=== PATIENT | female | born 1975 | race African-American/Black ===

== ENCOUNTER 2020-05-21 19:01 | Observation (INO) | payer OTHER, SELFPAY ==
--- NOTE | ~2020-05-21 | CT_ITS ---
EXAMINATION: CT abdomen pelvis w con INDICATION: Right upper quadrant pain TECHNIQUE: Computed tomographic images of the abdomen and pelvis were obtained after the administrati on of 100 cc of Omnipaque 350 intravenous contrast. The dose-length product (DLP) was 541.11 mGy-cm. Automated exposure control and iterative reconstruction technique were employed. COMPARISON: None available FINDINGS: Minimal dependent atelectasis is present in the lung bases. The heart size is normal. There is a 2.1 cm hemangioma of the left hepatic lobe. The spleen, pancreas, and adrenal glands are normal . There appears to be mild wall thickening of the gallbladder. The kidneys are unremarkable. No patho logically enlarged abdominal or pelvic lymph nodes are identified. There is no free intraperitoneal g as or evidence of bowel obstruction. An IUD is present in the uterus in expected position. Calcified atherosclerosis is noted. The appendix is normal. IMPRESSION: 1. CT findings suggestive of acute cholecystitis. Consider further evaluation with ultrasound or nucl ear hepatobiliary scan. Reviewed, dictated and finalized at location A. LE PERSON IMPRESSION: 1. CT findings suggestive of acute cholecystitis. Consider further evaluation w ith ultrasound or nuclear hepatobiliary scan.
--- NOTE | ~2020-05-21 | CT_ITS ---
EXAMINATION: CT cervical spine wo con DATE: 05/21/2020 21:04 INDICATION: Neck pain TECHNIQUE: Computed tomography (CT) of the cervical spine was performed without intravenous contrast. The dose-length product (DLP) was 336.87 mGy-cm. Automated exposure control and iterative reconstruc tion technique were employed. COMPARISON: None FINDINGS: There is reversal of normal cervical lordosis. No fracture is identified. The vertebral bod y heights and alignment are normal. The intervertebral disc space heights are maintained. The odontoi d is intact. The prevertebral soft tissues are normal. IMPRESSION: 1. No acute osseous abnormality. Reviewed, dictated and finalized at location A. COATER
--- NOTE | ~2020-05-21 | US_ITS ---
EXAMINATION: US right upper quadrant EXAM DATE: 05/22/2020 07:24 INDICATION: Cholecystitis. TECHNIQUE: Multiple grayscale and Doppler images of the abdomen right upper quadrant were obtained (ngozi y a technologist who performed the scan) and subsequently reviewed. Correlation is made to CT abdomen from 05/21/2020. FINDINGS: The pancreatic head and body are normal in appearance. The pancreatic tail is not visualized. The l iver has normal echogenicity and contour. There are no focal liver lesions identified. There is no evidence of intrahepatic biliary duct dilation. Portal venous flow was seen in the hepatopedal, nor mal direction and has normal Doppler waveform. No right-sided hydronephrosis. Common bile duct measures 4 mm, which is normal. Gallbladder is mildly distended. There is borderline gallbladder wall thickening at 3 mm. Technologist did note tenderness over the gallbladder, sonograp hic Ayoub sign. No cholelithiasis or pericholecystic fluid. IMPRESSION: Borderline gallbladder wall thickening and sonographic Ayoub's sign demonstrated. No cho lelithiasis or pericholecystic fluid. Possible acute acalculous cholecystitis. Reviewed, dictated and finalized at location A. NDER JOB RETENTION SPECIALIST IMPRESSION: Borderline gallbladder wall thickening and sonographic Ayoub's sig n demonstrated. No cholelithiasis or pericholecystic fluid. Possible acute acal culous cholecystitis.
[2020-05-21 19:11] VITALS: BP 162/97; PULSE 101; RESP 18; TEMP 36.2; O2SAT 100
[2020-05-21 19:26] LABS: Basophils Percent Auto 0.6 % (0.2-1.2); Eosinophils Absolute Auto 0.2 K/mm3 (0-0.3); Eosinophils Percent Auto 2.8 % (0-4.4); Immature Granulocyte Absolute 0.01 K/mm3 (0.00-0.031); Immature Granulocyte Percent A 0.1 % (0-0.5); Lymphocytes Absolute Auto 3.23 K/mm3 (0.9-3.2); Lymphocytes Percent Auto 45.4 % (18.3-44.2); Mean Corpuscular HGB Conc 33.3 g/dl (32-36); Mean Corpuscular Hemoglobin 32.2 pg (26-34); Mean Corpuscular Volume 96.6 fl (80-100); Mean Platelet Volume 9.1 fl (7.4-10.4); Monocytes Absolute Auto 0.5 K/mm3 (0.1-0.6); Monocytes Percent Auto 6.3 % (2.6-8.5); Neutrophils Absolute Auto 3.2 K/mm3 (1.3-6.7); Neutrophils Percent Auto 44.8 % (45.5-73.1); Platelet Count Result 284 k/mm3 (150-375); Red Blood Count 4.35 M/mm3 (4.2-5.4); White Blood Count 7.1 K/mm3 (4.5-10.0)
[2020-05-21] MEDS: SODIUM CHLORIDE 0.9% IV 1,000 ML 999 ML IV CONT (19:45)
--- NOTE | 2020-05-21 20:14 | ED.GENADULT ---
HPI - General Adult General Chief complaint: Abdominal Pain Stated complaint: upper quadrant abdominal pain Time Seen by Provider: 05/21/20 19:37 Source: patient Mode of arrival: ambulatory Limitations: no limitations History of Present Illness HPI narrative: 44 years old -Thai female presents with right neck with intermittent right upper extremity pain for the last few weeks. Patient also complaining of right upper abdominal pain today. Patient denies any fever, chills, nausea, vomiting, headache, chest pain, shortness of breath, trauma. Patient works as a nurse Related Data Home Medications Medication Instructions Recorded Confirmed No Home Medications 05/21/20 05/21/20 Allergies Allergy/AdvReac Type Severity Reaction Status Date / Time No Known Allergies Allergy Verified 05/21/20 19:15 Review of Systems Review of Systems: Narrative: CONSTITUTIONAL: Denies fever, chills, or sweats. EYES: Denies visual changes, redness, or discharge. ENT: Denies rhinorrhea, congestion, sore throat, or otalgia. CARDIOVASCULAR: Denies chest pain, palpitations, or edema. RESPIRATORY: Denies cough or dyspnea. GASTROINTESTINAL: Denies abdominal pain, nausea, vomiting, or diarrhea. GENITOURINARY: Denies dysuria or hematuria. SKIN: Denies rash or itching. MUSCULOSKELETAL: Denies back pain, joint pain, or myalgia. NEUROLOGIC: Denies headache, numbness, or weakness. PSYCHIATRIC: Denies anxiety or depression. Exam Narrative: Exam Narrative: General appearance: Well-developed, well-nourished Skin: Normal color Head: Normocephalic, nontraumatic Eyes: Clear conjunctiva ENT: Oropharynx normal, ears normal, nose normal Neck: Supple, mild tenderness right side, no bruises, no swelling, no mass or rash Chest and respiratory: Airway patent, no respiratory distress, no accessory muscle use Heart: Regular rate/rhythm Abdomen: Soft, mild tenderness right upper quadrant, no organomegaly, quiet bowel sounds Vascular: Normal peripheral pulses, normal capillary refill. Musculoskeletal: Normal range of motion, nontender back Neurologic: Alert and oriented ?3, ASSISTANT CORPORATE SECRETARY is normal as tested, no gross motor deficit Course Course Emergency Course: Stable Vital Signs Vital signs: Vital Signs Temperature 36.2 C L 05/21/20 19:11 Pulse Rate 101 H 05/21/20 19:11 Respiratory Rate 18 05/21/20 19:11 Blood Pressure 162/97 H 05/21/20 19:11 Pulse Oximetry 100 05/21/20 19:11 Temperature 36.2 C L 05/21/20 19:11 Pulse Rate 101 H 05/21/20 19:11 Respiratory Rate 18 05/21/20 19:11 Blood Pressure 162/97 H 05/21/20 19:11 Pulse Oximetry 100 05/21/20 19:11 Medical Decision Making MDM Narrative Medical decision making narrative: Patient presents with symptoms of right cervical radiculopathy and right upper quadrant pain. Labs, UA, CT abdomen pelvis with IV contrast, CT cervical spine, IV fluids, IV morphine and Zofran ordered. Further plan to follow Differential Diagnosis Differential Diagnosis: Gallbladder pathology, diverticulitis, constipation, urinary tract infection, cervical radiculopathy Vital Signs Vital Signs: Vital Signs Temperature 36.2 C L 05/21/20 19:11 Pulse Rate 101 H 05/21/20 19:11 Respiratory Rate 18 05/21/20 19:11 Blood Pressure 162/97 H 05/21/20 19:11 Pulse Oximetry 100 05/21/20 19:11 Temperature 36.2 C L 05/21/20 19:11 Pulse Rate 101 H 05/21/20 19:11 Respiratory Rate 18 05/21/20 19:11 Blood Pressure 162/97 H 05/21/20 19:11 Pulse Oximetry 100 05/21/20 19:11 Lab Data Result diagrams: 05/21/20 19:20 Labs: Lab Results 05/21/20 Range/Units 19:20 WBC 7.1 (4.5-10.0) K/mm3 R
[2020-05-21] MEDS: MORPHINE SULFATE (*CRX) 2 MG/ML INJ IV PUSH (20:31)
[2020-05-21] MEDS: ONDANSETRON INJ 4 MG/2 ML VIAL IV PUSH (20:31)
[2020-05-21 20:45] LABS: Alanine Aminotransferase 20 U/L (4-35); Albumin Level 4.6 g/dL (3.5-5.1); Alkaline Phosphatase 55 U/L (38-126); Anion Gap 8 mmol/L (8-16); Aspartate Amino Transferase 27 U/L (14-36); Bilirubin,Total 0.4 mg/dL (0.2-1.3); Blood Urea Nitrogen 17 mg/dL (7-17); Calcium 9.9 mg/dL (8.4-10.2); Carbon Dioxide 32 mmol/L (22-30); Chloride 101 mmol/L (98-107); Estimated CRCL calculation 71 ml/min; Estimated Glomerular Filt Rate > 60; Glucose 101 mg/dL (65-105); Lipase 67 U/L (23-300); Potassium 3.8 mmol/L (3.4-5.0); Sodium 141 mmol/L (137-145)
[2020-05-21 21:00] LABS: Add Urine Microscopic? NO; Appearance Urine Clear (Clear); Bilirubin Urine Negative (Negative); Blood Urine Negative (Negative); Color Urine Yellow (Yellow); Glucose Urine UA Negative (Negative); Ketones Urine Negative (Negative); Leukocyte Esterase Ur Negative LEU/UL (Negative); Nitrate Urine Negative (Negative); Protein Urine Negative (Negative); Specific Grav Ur 1.023 (1.001-1.035); Urobilinogen Urine Negative mg/dL (<2.0)
[2020-05-21 21:50] VITALS: BP 133/81; PULSE 70; O2SAT 100
[2020-05-21 21:51] VITALS: BP 133/81
[2020-05-21] MEDS: LACTATED RINGERS 1,000 ML 125 ML IV CONT (22:46)
[2020-05-21 23:11] VITALS: BP 151/85; PULSE 69; PULSE 92; RESP 18; O2SAT 100
[2020-05-22] VITALS: BP 161/81; PULSE 77; RESP 21; TEMP 36.3; O2SAT 100; BMI 29.2
--- NOTE | 2020-05-22 00:03 | ADMGEN ---
This patient, Tasha Mckeon, was admitted to Medical Room 251-01. Patient/family oriented to hospital policies and general routines including ID bracelet, bed and alarms, visiting hours, pain management, procedures, bathroom and other care routines, personal items, smoking policy, room service/diet, and visiting hours. Information on how to activate the Rapid Response Team has been discussed. Patient/Family are encouraged to report perceived risks to care and to ask questions if they do not understand what they are told or what they should do.
[2020-05-22] MEDS: LACTATED RINGERS 1,000 ML 125 ML IV CONT ×2 (00:13→08:27)
[2020-05-22] MEDS: ONDANSETRON INJ 4 MG/2 ML VIAL IV PUSH ×3 (00:14→08:26)
[2020-05-22] MEDS: MORPHINE SULFATE (*CRX) 4 MG/ML INJ IV PUSH ×2 (00:14→04:04)
[2020-05-22 02:30] VITALS: BP 161/81; PULSE 77; RESP 21; TEMP 36.3; O2SAT 100
[2020-05-22 06:25] VITALS: BP 145/84; PULSE 85; RESP 21; TEMP 36.2; O2SAT 100
[2020-05-22 06:49] LABS: Alanine Aminotransferase 16 U/L (4-35); Albumin Level 3.7 g/dL (3.5-5.1); Alkaline Phosphatase 42 U/L (38-126); Anion Gap 2 mmol/L (8-16); Aspartate Amino Transferase 23 U/L (14-36); Bilirubin,Total 0.2 mg/dL (0.2-1.3); Blood Urea Nitrogen 16 mg/dL (7-17); Calcium 9.1 mg/dL (8.4-10.2); Carbon Dioxide 29 mmol/L (22-30); Chloride 108 mmol/L (98-107); Estimated CRCL calculation 66 ml/min; Estimated Glomerular Filt Rate > 60; Glucose 89 mg/dL (65-105); Sodium 139 mmol/L (137-145)
--- NOTE | 2020-05-22 09:26 | PM.IMHP ---
H&P: HPI History of Present Illness Date/Time: 05/22/20 09:26 Chief Complaint: Right upper quadrant pain Narrative: Tasha Mckeon is a 44 year old female who presented to the emergency department last night with right upper quadrant pain that started yesterday. She states that the pain started a few hours after eating a light lunch. She does not recall anything in particular that she ate that could have caused this. She did have a similar episode like this 2 weeks ago that resolved with time. This episode was a little more severe, therefore she decided to come in. She did have some nausea but no vomiting. She denies any fevers or chills or any change in bowel habits. She did state that she has been eating a Keto diet for several months, but she just recently moved up here from [place] and states that her diet has not been very good lately. She denies any family history of gallbladder problems and denies any prior history of intolerance to any particular foods. Review of Systems Review of Systems: All systems reviewed & are unremarkable except as noted in HPI and below Eyes: Eyes: Denies change in vision ENT: Denies hearing loss, Denies neck pain and Denies sore throat Cardiovascular: Cardiovascular: Denies chest pain and Denies dyspnea Respiratory: Respiratory: Denies cough, Denies dyspnea and Denies wheezing Gastrointestinal: Gastrointestinal: Reports as per HPI Genitourinary: Genitourinary: Denies hematuria and Denies dysuria Musculoskeletal: Musculoskeletal: Denies arthralgias, Denies joint swelling and Denies neck pain Allergic/Immunologic: Allergic/Immunologic: Denies wheezing [facility] Family History Family History (Updated 05/22/20 @ 09:29 by Carlos Hannah DO) Other Patient denies significant medical history Social History Social History Smoking status: Former smoker Tobacco type: cigarettes Alcohol intake: never Substance use: never Gender identity (if verbalized by the patient): Female Spiritual care concerns: No Meds Home Medications and Allergies Home Medications Medication Instructions Recorded Confirmed Type No Home Medications 05/21/20 05/21/20 History Allergies Allergy/AdvReac Type Severity Reaction Status Date / Time No Known Allergies Allergy Verified 05/21/20 19:15 Vital Signs Vital Signs - 24 hr 05/21/20 19:11 05/21/20 21:50 05/21/20 21:51 Temperature 36.2 C L Pulse Rate 101 H 70 Respiratory Rate 18 Blood Pressure 162/97 H 133/81 133/81 Pulse Oximetry 100 100 05/21/20 23:11 05/22/20 00:00 05/22/20 02:30 Temperature 36.3 C L 36.3 C L Pulse Rate 92 77 77 Respiratory Rate 18 21 H 21 H Blood Pressure 151/85 H 161/81 H 161/81 H Pulse Oximetry 100 100 100 05/22/20 06:25 Temperature 36.2 C L Pulse Rate 85 Respiratory Rate 21 H Blood Pressure 145/84 H Pulse Oximetry 100 Exam Const: General: alert; No acute distress Orientation/consciousness: patient oriented x3 Limitations: no limitations HENMT: Head: normocephalic and atraumatic Ears: hearing grossly normal bilaterally General nose exam: Normal external nose present and Normal nares present Mouth: Yes Normal oral and palatal mucosa present and Yes moist mucous membranes Eyes: General: appearance normal, both eyes and all related structures Conjunctivae: conjunctivae normal Sclera: sclerae normal Pupils: Equal, round and reactive pupils present EOM: EOMs intact bilaterally Neck: Neck: normal visual inspection, full ROM, no lymphadenopathy, supple and no JVD Lymphatic: no lymphadenopathy noted Chest: Chest palpation & inspection: normal inspection of the chest Resp: Effort & Inspection: normal respiratory effort and able to speak in complete sentences Auscultation: clear to auscultation bilaterally Percussion: percussion normal Cardio: Jugular venous distension: no JVD Rate: regular rate Rhythm: regul
[2020-05-22 14:00] VITALS: BP 142/74; PULSE 100; RESP 16; TEMP 36.4; O2SAT 97
--- NOTE | 2020-05-22 14:15 | PM.DS ---
DS: Admitting Diagnosis Admitting Diagnosis Admitting Diagnosis: Acute cholecystitis DS: Discharge Diagnosis Discharge Diagnosis (1) Cholecystitis without cholelithiasis: Code(s): K81.9 - Cholecystitis, unspecified Status: Acute DS: Summary Hospital Course Reason for hospitalization: Tasha Mckeon is a 44 year old female who presented to the emergency department last night with right upper quadrant pain. Workup in the ED showed normal white blood cell count and normal LFTs. CT abd/pelvis showed mild gallbladder wall thickening, no gallstones. Abdominal ultrasound showed borderline gallbladder wall thickening and positive Ayoub's sign, but no cholelithiasis or pericholecystic fluid. The patient was admitted for observation and surgical evaluation. Hospital Course: The patient was started on IV fluids and broad-spectrum IV antibiotics initially. She was NPO until evaluated by our service. Her abdominal pain improved significantly after being admitted from the ED and had nearly resolved by the time she was evaluated on the medical floor this morning. She had no evidence of cholelithiasis on imaging and her labs were normal. Differential dx were discussed with the patient and treatment options. She opted to try eating a low fat diet and see if she tolerates a diet. The patient was re-evaluated this afternoon and has been tolerating the low fat diet through the day. She had some mild nausea when eating lunch that quickly resolved. No more episodes of abdominal pain. No other complaints at this time. The patient would still like to be discharged home since she is tolerating a diet. I discussed with the patient to call our office or return to the ER if symptoms return. Status at Discharge Functional status at discharge: independent ambulation Overall status at discharge: patient is back to baseline Time Spent with Patient Time attestation: Total time spent providing and/or coordinating discharge services: 20 minutes Time spent: Less than 30 minutes Exam GI: Inspection: normal to inspection and non-distended GI Palp: Yes Soft to palpation, Yes Tenderness to palpation present (GI) (very mild RUQ, improved) and No Guarding due to palpation present (GI) Percussion: Yes normal to percussion Auscultation: normal bowel sounds Skin: General skin exam: normal color Neuro: General: moves all extremities and no focal motor deficits DS: Data Data Completed and Pending Completed studies during hospitalization: ITS Impressions Cervical Spine CT 05/21/20 21:13 IMPRESSION: 1. No acute osseous abnormality. Abdomen/Pelvis CT 05/21/20 21:24 IMPRESSION: 1. CT findings suggestive of acute cholecystitis. Consider further evaluation with ultrasound or nuclear hepatobiliary scan. Upper Quadrant Ultrasound 05/22/20 07:26 IMPRESSION: Borderline gallbladder wall thickening and sonographic Ayoub's sign demonstrated. No cholelithiasis or pericholecystic fluid. Possible acute acalculous cholecystitis. Labs on day of discharge: Labs from last 24 hours 05/22/20 05/21/20 05/21/20 05:08 20:53 19:20 WBC RBC Hgb Hct MCV MCH MCHC RDW Plt Count MPV Immature Gran % (Auto) Neut % (Auto) Lymph % (Auto) Carson % (Auto) Eos % (Auto) Baso % (Auto) Lymph # (Auto) Carson # (Auto) Eos # (Auto) Baso # (Auto) Abs Immat Gran (auto) Absolute Neuts (auto) Absolute Nucleated RBC Nucleated RBC % Sodium 139 141 Potassium 4.0 3.8 Chloride 108 H 101 Carbon Dioxide 29 32 H Anion Gap 2 L 8 BUN 16 17 Creatinine 1.00 0.90 Estim Creat Clear Calc 66 71 Estimated GFR > 60 > 60 Glucose 89 101 Calcium 9.1 9.9 Total Bilirubin 0.2 0.4 AST 23 27 ALT 16 20 Alkaline Phosphatase 42 55 Total Protein 6.0 L 8.0 Albumin 3.7 4.6 Lipase 67 Urine Color Yellow Urine Appearance Clear Urine pH 7.0 Ur Specific
== END 2020-05-22 16:35 | disposition home or self-care (01) ==
LOC: ANHED 19:37 → ANH2MED 23:21
PROVIDERS: Admitting Provider Surgery; Emergency Provider Emergency Medicine; Referring Provider Emergency Medicine; Visit Provider Surgery
DX: K81.9 Cholecystitis, unspecified (principal); Z87.891 Personal history of nicotine dependence
CPT/HCPCS: 36415; 72125; 74177; 76705; 80053; 81003; 81025; 83690; 85025; 96361; 96365; 96375; 96376; 99285; G0378; J0131; J2270; J2405; J2543; J7030; J7120; Q9967

== ENCOUNTER 2020-05-23 14:09 | Emergency (ER) | payer OTHER, SELFPAY ==
--- NOTE | ~2020-05-23 | US_ITS ---
EXAMINATION: US venous doppler UE RT DATE: 05/23/2020 15:13 INDICATION: Right arm swelling TECHNIQUE: Grayscale ultrasound images without and with compression and Doppler ultrasound images of the right upper extremity veins were obtained. COMPARISON: None. FINDINGS: The right internal jugular vein, subclavian vein, axillary vein, brachial veins, basilic vein, cephal ic vein, radial vein, and ulnar vein are patent. IMPRESSION: 1. No evidence of deep venous thrombosis. Reviewed, dictated and finalized at location A. OR WINDOWS SYSTEMS ADMINISTRATOR
[2020-05-23 14:21] VITALS: BP 166/92; PULSE 80; RESP 16; TEMP 36.6; O2SAT 100
[2020-05-23] MEDS: methylPREDNISolone SOD SUCC 125 MG VIAL IM (15:20)
[2020-05-23] MEDS: KETOROLAC 30 MG/ML VIAL (*BKC) IM (15:20)
--- NOTE | 2020-05-23 20:33 | ED.GENADULT ---
HPI - General Adult General Chief complaint: Extremity Problem,Nontraumatic Stated complaint: right arm pain Time Seen by Provider: 05/23/20 14:15 Source: patient Mode of arrival: ambulatory Limitations: no limitations History of Present Illness HPI narrative: Patient presents with chief complaint of persistently worsening right arm pain that at times feels sharp and at times feels intense and throbby. Patient states that she had a CT of her neck and spoke with her primary care on today we will refer her to neurology. Patient states she follow-up with neurologist office and was told that they do not perform test in the office. She states that her primary care the refer her to the emergency department for further investigation. Patient states she has had had multiple blood draws, IVs, but has not had any falls or direct trauma to her neck or arms. Patient states that she is very concerned for a blood clot in her arm. She feels swollen and slightly warm. Area is not erythematous. Patient has not had any fever, chills, nausea, vomiting, diarrhea. Patient states that her primary care has called her steroids and muscle relaxants to the pharmacy. Related Data Home Medications Medication Instructions Recorded Confirmed No Home Medications 05/21/20 05/21/20 Allergies Allergy/AdvReac Type Severity Reaction Status Date / Time No Known Allergies Allergy Verified 05/23/20 16:11 Review of Systems Review of Systems: Narrative: CONSTITUTIONAL: Denies fever, chills, or sweats. EYES: Denies visual changes, redness, or discharge. ENT: Denies rhinorrhea, congestion, sore throat, or otalgia. CARDIOVASCULAR: Denies chest pain, palpitations, or edema. RESPIRATORY: Denies cough or dyspnea. GASTROINTESTINAL: Denies abdominal pain, nausea, vomiting, or diarrhea. GENITOURINARY: Denies dysuria or hematuria. SKIN: Denies rash or itching. MUSCULOSKELETAL: Reports right arm pain denies back pain, joint pain, or myalgia. NEUROLOGIC: Denies headache, numbness, dizziness, or weakness. PSYCHIATRIC: Denies anxiety or depression. [facility] Family History Family History (Updated 05/22/20 @ 09:29 by Carlos Hannah DO) Other Patient denies significant medical history Social History Social History Smoking status: Former smoker Tobacco type: cigarettes Alcohol intake: never Substance use: never Gender identity (if verbalized by the patient): Female Spiritual care concerns: No Exam Narrative: Exam Narrative: GENERAL: Well-appearing, well-nourished, and in no acute distress. HEAD: Normocephalic, atraumatic. EYES: PERRLA and EOMI. NECK: Supple. No adenopathy or masses. No vertebral point tenderness to palpation or loss of range of motion to the neck. CHEST: Clear to auscultation. No respiratory distress. No wheezes rales or rhonchi HEART: Regular rate and rhythm. No murmur heard. Normal peripheral pulses. ABDOMEN: Soft, nontender, nondistended, normal active bowel sounds. EXTREMITIES: There is tenderness with palpation to the proximal aspect to the anxiety of the right arm. normal range of motion. No appreciated erythema or ecchymosis or edema. Pulses intact. SKIN: Warm, dry, no rash. NEURO: No focal deficits. Alert and oriented x3. PSYCH: Normal mood and affect. Course Vital Signs Vital signs: Vital Signs Temperature 98 F 05/23/20 14:21 Pulse Rate 80 05/23/20 14:21 Respiratory Rate 16 05/23/20 14:21 Blood Pressure 166/92 H 05/23/20 14:21 Pulse Oximetry 100 05/23/20 14:21 Temperature 98 F 05/23/20 14:21 Pulse Rate 80 05/23/20 14:21 Respiratory Rate 16 05/23/20 14:21 Blood Pressure 166/92 H 05/23/20 14:21 Pulse Oximetry 100 05/23/20 14:21 Medical Decision Making MDM Narrative Medical decision making narrative: Discussed with the patient that her Doppler was negative for DVT. Discussed that I suspect the patient is having cervical
== END 2020-05-23 16:04 | disposition home or self-care (01) ==
PROVIDERS: Emergency Provider Emergency Medicine
DX: M54.12 Radiculopathy, cervical region (principal); Z87.891 Personal history of nicotine dependence
CPT/HCPCS: 93971; 96372; 99284; J1885; J2930

== ENCOUNTER 2020-11-28 14:55 | Outpatient (CLI) | payer OTHER, SELFPAY ==
--- NOTE | ~2020-11-28 | MM_ITS ---
EXAMINATION: MM screening baudilio BI w dixon HISTORY: Screening mammogram TECHNIQUE: Craniocaudal and mediolateral oblique 3-D tomosynthesis images were obtained and synthetic 2-D images were generated. CAD analysis was submitted and interpreted. COMPARISON: No prior mammogram is available for comparison at this institution. BREAST PARENCHYMAL COMPOSITION: There are scattered areas of fibroglandular density. FINDINGS: There is no evidence of suspicious mass, calcification, or architectural distortion to sugg est malignancy in either breast. There has been no suspicious interval change. IMPRESSION: 1. No mammographic evidence of malignancy. 2. Recommend routine screening mammography in one year. BI-RADS Category 1: Negative Reviewed, dictated and finalized at location A.
== END 2020-11-28 14:56 ==
PROVIDERS: Visit Provider Obstetrics & Gynecology
DX: Z12.31 Encounter for screening mammogram for malignant neoplasm of breast (principal)
CPT/HCPCS: 77063; 77067

== ENCOUNTER 2022-06-17 08:00 | Outpatient (NON) | payer OTHER, SELFPAY | END 2022-06-17 08:01 | disposition home or self-care (01) | LOC: ANHLAB 06-18 07:35 | PROVIDERS: PCP Physician Assistant; Visit Provider Internal Medicine Gastroenterology | DX: Z12.11 Encounter for screening for malignant neoplasm of colon (principal) | CPT/HCPCS: 88305 ==

== ENCOUNTER 2022-06-17 11:18 | Day surgery (SDC) | payer OTHER, SELFPAY ==
[2022-05-19 13:45] VITALS: BMI 27.3
[2022-06-03 10:29] VITALS: BMI 27.1
[2022-06-17 12:17] VITALS: BP 170/89; PULSE 89; RESP 18; TEMP 36.8; O2SAT 100
--- NOTE | 2022-06-17 12:33 | WPDANESEPPF ---
Anes - Initial Pre Proc Eval Procedure: Operation Date: 06/17/22 13:30 Proposed Procedures p Esophagogastroduodenoscopy - Kendall Ernst MD s Diagnostic Colonoscopy - Kendall Ernst MD Date/Time: 06/17/22 12:33 Surgeon: Kendall Ernst MD Pre Op Diagnosis: Gerd and Blood in Stool Patient Data Age: 46 Gender: F Height: 1.65 m Weight: 77.3 kg Last Vital Signs Temp 36.8 C 06/17/22 12:17 Pulse 89 06/17/22 12:17 Resp 18 06/17/22 12:17 BP 170/89 H 06/17/22 12:17 Pulse Ox 100 06/17/22 12:17 O2 Del Method Room Air 06/17/22 12:17 Allergies Allergy/AdvReac Type Severity Reaction Status Date / Time No Known Allergies Allergy Verified 06/17/22 12:16 Home Medications Medication Instructions Recorded Confirmed Type No Home Medications 05/21/20 06/17/22 History Patient hx anesthesia problems: none Family hx anesthesia problems: none Results Review: All pre-operative results and documents have been reviewed as part of the pre-operative evaluation. [facility], [facility] Past Medical History Medical History (Updated 06/17/22 @ 12:33 by Juan Pablo Elliott MD) Overweight Family History Family History Other Patient denies significant medical history Social History Social History Smoking status: Current every day smoker Tobacco type: cigarettes Alcohol intake: never Substance use: never Substance use type: does not use Living arrangements: with family Gender identity (if verbalized by the patient): Female Spiritual care concerns: No Anes - Eval Final PreProcedure Day of Procedure 06/17/22 12:33 Patient weight: overweight Heart: regular rate and rhythm Lungs: clear to auscultation Airway: Mallampati scale class II Neurological: alert and oriented Last oral intake: >/= 8 hours ASA classification: II Emergent: no Anesthetic plan: proceed Anesthesia type and monitoring: general GIVS and standard monitoring Results Review: All pre-operative results and documents have been reviewed as part of the pre-operative evaluation. Informed Consent: The patient's anesthetic plan and its attendant risks and benefits were discussed with the patient/family/POA. Questions were solicited and answers provided to the satisfaction of the patient/family/POA.
[2022-06-17] MEDS: LACTATED RINGERS 1,000 ML 150 ML IV CONT (12:39)
--- NOTE | 2022-06-17 13:04 | PM.HPGS ---
History of Present Illness History of Present Illness Consent: Risks, benefits, and alternatives have been discussed and questions answered. Patient agrees to proceed with procedure. Chief complaint: Gerd and Blood in Stool Narrative: Tasha Smith is a 46 year old female with gerd, tried omeprazole otc and last egd years ago, also intermittent blood in stools and never had colonoscopy Review of Systems Constitutional: Constitutional: Denies headache(s) and Denies weakness Eyes: Eyes: Denies blurry vision ENT: Reports Normal hearing present, Denies headache(s) and Denies neck pain Cardiovascular: Cardiovascular: Denies chest pain and Denies dyspnea Respiratory: Respiratory: Denies dyspnea Gastrointestinal: Gastrointestinal: Reports no additional gastrointestinal complaints Genitourinary: Genitourinary: Denies dysuria Musculoskeletal: Musculoskeletal: Denies neck pain Integumentary/Breasts: Skin/Breast: Denies dry skin Neurologic: Reports Normal hearing present, Denies headache(s) and Denies weakness Psychiatric: Psychiatric: Denies anxiety Endocrine: Endocrine: Denies change in body appearance Hematologic/Lymphatic: Hematologic/Lymphatic: Denies easy bleeding Allergic/Immunologic: Allergic/Immunologic: Denies urticaria PMFSH Past Medical History Medical History (Updated 06/17/22 @ 13:05 by Kendall Ernst MD) Blood in stool Colon cancer screening GERD (gastroesophageal reflux disease) Overweight Family History Family History Other Patient denies significant medical history Social History Social History Smoking status: Current every day smoker Tobacco type: cigarettes Alcohol intake: never Substance use: never Substance use type: does not use Living arrangements: with family Gender identity (if verbalized by the patient): Female Spiritual care concerns: No Meds Home Medications and Allergies Home Medications Medication Instructions Recorded Confirmed Type No Home Medications 05/21/20 06/17/22 History Allergies Allergy/AdvReac Type Severity Reaction Status Date / Time No Known Allergies Allergy Verified 06/17/22 12:16 Vital Signs Vital Signs - 24 hr 06/17/22 12:17 Temperature 98.2 F Pulse Rate 89 Respiratory Rate 18 Blood Pressure 170/89 H Pulse Oximetry 100 Oxygen Delivery Room Air Exam Const: General: comfortable and no acute distress HENMT: Face/Nose/Sinus: Normal nares present Eyes: General: appearance normal, both eyes and all related structures Neck: Neck: no JVD Resp: Auscultation: clear to auscultation bilaterally Cardio: Rate: regular rate Rhythm: regular rhythm GI: Inspection: non-distended GI Palp: Yes Soft to palpation Skin: General skin exam: normal color Neuro: General: gait normal Speech: normal speech Extrem: General: normal to inspection Psych: Mental Status: mental status grossly normal Assessment and Plan Assessment and plan (1) Blood in stool: Code(s): K92.1 - Melena Status: Acute Assessment and Plan: assess with colonoscopy (2) GERD (gastroesophageal reflux disease): Code(s): K21.9 - Gastro-esophageal reflux disease without esophagitis Status: Acute Assessment and Plan: egd with bx (3) Colon cancer screening: Code(s): Z12.11 - Encounter for screening for malignant neoplasm of colon Status: Acute
[2022-06-17 13:38] VITALS: BP 97/62; PULSE 78; RESP 20; O2SAT 100
--- NOTE | 2022-06-17 13:47 | WPDANESPN ---
Anes - Prog Note Post-Op Date/Time: 06/17/22 13:47 Cardiovascular status: normal Respiratory status: normal Airway patency: baseline Mental status: baseline Post-Op hydration status: normal Vital Signs: Last Vital Signs Temp 36.8 C 06/17/22 12:17 Pulse 78 06/17/22 13:38 Resp 20 06/17/22 13:38 BP 97/62 L 06/17/22 13:38 Pulse Ox 100 06/17/22 13:38 O2 Del Method Room Air 06/17/22 13:38 Pain Score (VAS): 0/10 Patient Feedback: Patient satisfied with anesthetic care.
[2022-06-17 13:48] VITALS: BP 114/93; PULSE 68; RESP 20; O2SAT 100
[2022-06-17 13:58] VITALS: BP 130/80; PULSE 66; RESP 20; O2SAT 100
== END 2022-06-17 14:17 | disposition home or self-care (01) ==
PROVIDERS: PCP Physician Assistant; Visit Provider Internal Medicine Gastroenterology
PROC: 0DJ08ZZ Inspection of Upper Intestinal Tract, Via Natural or Artificial Opening Endoscopic (ICD-10-PCS; CPT 43235; principal; 2022-06-17 13:30)
PROC: 0DJD8ZZ Inspection of Lower Intestinal Tract, Via Natural or Artificial Opening Endoscopic (ICD-10-PCS; CPT 45378; 2022-06-17 13:30)
DX: K92.1 Melena (principal)
CPT/HCPCS: 45378; 43239

== ENCOUNTER → 2022-07-30 13:49 | Outpatient (CLI) | payer OTHER, SELFPAY ==
--- NOTE | ~2022-07-30 | US_ITS ---
EXAMINATION: US soft tissue head and neck DATE: 07/30/2022 14:03 INDICATION: Left supraclavicular lymphadenopathy. TECHNIQUE: Multiple grayscale and Doppler ultrasound images of the left subclavicular region were obt ained. COMPARISON: CT cervical spine 05/21/20 FINDINGS: There is no abnormal mass or lymphadenopathy in the left supraclavicular region. IMPRESSION: 1. No abnormal mass or lymphadenopathy in the left supraclavicular region. Reviewed, dictated and finalized at location A.
== END ==
PROVIDERS: PCP Physician Assistant; Visit Provider Physician Assistant
DX: R59.0 Localized enlarged lymph nodes (principal)
CPT/HCPCS: 76536

== ENCOUNTER → 2022-11-29 10:36 | Outpatient (CLI) | payer OTHER, SELFPAY ==
--- NOTE | ~2022-11-29 | MM_ITS ---
EXAMINATION: MM screening [facility] BI w dixon HISTORY: Screening mammogram TECHNIQUE: Craniocaudal and mediolateral oblique 3-D tomosynthesis images were obtained and synthetic 2-D images were generated. CAD analysis was submitted and interpreted. COMPARISON: 11/20/2020 BREAST PARENCHYMAL COMPOSITION:The breasts are almost entirely fatty FINDINGS: There is a 6 mm low-density circumscribed mass at the lower, inner, posterior left breast. There is an additional 5 mm circumscribed low-density mass at the upper, central left breast. These a re not clearly visible on prior exam. No suspicious parenchymal abnormality seen in the right breast. No suspicious microcalcifications. IMPRESSION: 2 small circumscribed, low-density masses in the left breast, as detailed above. Though likely benign , as they are new from prior exam, spot compression views and ultrasound are recommended for further evaluation. BI-RADS Category 0: Incomplete: Needs additional imaging evaluation. Reviewed, dictated and finalized at [facility]. IMPRESSION: 2 small circumscribed, low-density masses in the left breast, as detailed above . Though likely benign, as they are new from prior exam, spot compression views and ultrasound are recommended for further evaluation. BI-RADS Category 0: Incomplete: Needs additional imaging evaluation.
== END ==
PROVIDERS: PCP Physician Assistant; Visit Provider Physician Assistant
DX: Z12.31 Encounter for screening mammogram for malignant neoplasm of breast (principal); N63.24 Unspecified lump in the left breast, lower inner quadrant
CPT/HCPCS: 77063; 77067

== ENCOUNTER → 2023-01-07 09:17 | Outpatient (CLI) | payer OTHER, SELFPAY ==
--- NOTE | ~2023-01-07 | MM_ITS ---
EXAMINATION: MM diagnostic [facility] w dixon HISTORY: 2 small circumscribed low-density masses of left breast reported on 11/29/2022 screening mamm ogram TECHNIQUE: Additional 3-D tomosynthesis images of the left breast were performed and synthetic 2-D im ages were generated. CAD analysis was submitted and interpreted. COMPARISON: 11/29/2022 bilateral screening mammogram FINDINGS: No suspicious reproducible mass, architectural distortion, microcalcifications, skin thicke stanley or retraction of the left breast is evident. The previously reported to left breast mammographic opacities are not reproduced. IMPRESSION: 1. No mammographic evidence of malignancy 2. Routine annual mammographic screening is recommended BI-RADS Category 1: Negative Reviewed, dictated and finalized at location A.
== END ==
PROVIDERS: PCP Physician Assistant; Visit Provider Physician Assistant
DX: R92.8 Other abnormal and inconclusive findings on diagnostic imaging of breast (principal)
CPT/HCPCS: 77061; 77065; G0279

== ENCOUNTER → 2023-02-13 13:33 | Outpatient (CLI) | payer OTHER, SELFPAY ==
--- NOTE | ~2023-02-13 | MR_ITS ---
EXAMINATION: MR brain/brain stem wo/w con DATE: 02/13/2023 14:22 INDICATION: Headache. TECHNIQUE: Magnetic resonance imaging (MRI) of the brain and brainstem was performed without intraven ous contrast. COMPARISON: None. FINDINGS: There is no intracranial hemorrhage, acute infarction, or abnormal intracranial mass lesion . The ventricles are normal in size. The orbits are normal. The paranasal sinuses are clear. The mast oid air cells are normal. IMPRESSION: 1. Normal brain. Note that some sequences were not performed because the patient terminated the exam because of claustrophobia, which decreases sensitivity. Reviewed, dictated and finalized at location A. IMPRESSION: 1. Normal brain. Note that some sequences were not performed because the patien t terminated the exam because of claustrophobia, which decreases sensitivity.
== END ==
PROVIDERS: PCP Physician Assistant; Visit Provider Physician Assistant
DX: R51.9 Headache, unspecified (principal)
CPT/HCPCS: 70553